=== PATIENT | male | born 1995 | race Caucasian/White ===

== ENCOUNTER 2017-06-12 09:00 | Emergency (ER) | payer OTHER ==
[2017-06-12 09:15] VITALS: BP 153/105; PULSE 84; RESP 16; TEMP 98.2; O2SAT 97
[2017-06-12] MEDS ORDERED: PROPARACAINE 0.5% 15 ML OPHT DROP OP ONE (09:18)
--- NOTE | 2017-06-12 09:41 | EDPHY ---
H & P Stated Complaint: right eye swollen and painful Time Seen by Provider: 06/12/17 09:14 HPI/ROS: Chief Complaint: Right eye pain and swelling HPI: 22-year-old male has had increasing swelling and irritation primarily to right upper eyelid and right eye worsening for the last 2 days. He is describing as an aching pain. Is not taking any medications for. Has not had any visual loss. Has been cleaning his apartment but does not recall any significant trauma. Does not wear contact lenses. No fevers or chills. No headache. No nausea or vomiting. ROS: 10 point Review of Systems is negative except as noted in the HPI. PMH: None Social History: [No] smoking, [no] alcohol, [ no recreational drug use] Family History: [non-contributory] Physical Exam: General: Awake, alert, no distress HEENT: Patient has significant swelling of his right upper eyelid. He has mild conjunctival injection. Is very minimal infraorbital erythema. There is no proptosis. He has no pain with extraocular movement. There is no resistance or tenderness to palpation. There is no double vision. There is no afferent nerve or pupillary defect. Anterior chambers clear. He has no consensual light reflex pain. There is no cell or flare. Skin: Per HEENT exam - Personal History Current Tetanus Diphtheria and Acellular Pertussis (TDAP): Yes Tetanus Vaccine Date: age 14 - Medical/Surgical History Hx Asthma: No Hx Chronic Respiratory Disease: No Hx Diabetes: No Hx Cardiac Disease: No Hx Renal Disease: No Hx Cirrhosis: No Hx Alcoholism: No Hx HIV/AIDS: No Hx Splenectomy or Spleen Trauma: No Other PMH: appy, kidney infection, ortho - Social History Smoking Status: Former smoker Constitutional: Initial Vital Signs Temperature (C) 36.8 C 06/12/17 09:12 Heart Rate 84 06/12/17 09:12 Respiratory Rate 16 06/12/17 09:12 Blood Pressure 153/105 H 06/12/17 09:12 O2 Sat (%) 97 06/12/17 09:12 O2 Delivery Mode Room Air Allergies/Adverse Reactions: amoxicillin [Amoxicillin] Allergy (Verified 06/12/17 09:15) EDEMA Home Medications: Medication Instructions Recorded None 10/07/09 Clindamycin HCl [Clindamycin] 300 mg PO TID #30 cap 06/12/17 Medical Decision Making ED Course/Re-evaluation: Patient has significant lid swelling consistent with blepharitis of his right eye. He does not have a decrease or pain full extraocular movements. There is no afferent pupillary defect. He does not have any resistance on retropulsion of that eye. There is no proptosis. There is minimal conjunctival injection. Symptoms consistent with a blepharitis. Will start with oral clindamycin. Will refer him for ophthalmology follow-up tomorrow. He has been cautioned with signs to return for any symptoms consistent with orbital cellulitis including diplopia, pain with eye movement, vision loss, or any other concerns. - Data Points Medications Given: Discontinued Medications Proparacaine HCl (Alcaine 0.5%) 1 drops OP EDNOW ONE Stop: 06/12/17 09:19 Last Admin: 06/12/17 09:24 Dose: 1 drops Departure - Departure Disposition: Home, Routine, Self-Care Clinical Impression: Blepharitis Condition: Good Instructions: Blepharitis (ED) Additional Instructions: Follow up with plastics engineer tomorrow. Continue taking her full course of oral antibiotics. You may take ibuprofen alternating with acetaminophen as needed for pain. Return to the emergency department immediately for pain with movement of her eye , double vision, worsening pain, changes in your vision, or any other concerns. Referrals: Thomas Jose MD [Medical Doctor] - As per Instructions Prescriptions: Clindamycin HCl [Clindamycin] 300 mg PO TID #30 cap
[2017-06-12] MEDS ORDERED: CLINDAMYCIN 150 MG CAP PO ONE (09:49)
== END 2017-06-12 10:09 | disposition home or self-care (01) ==
LOC: CED 09:00
DX: H01.001 Unspecified blepharitis right upper eyelid (principal); Z87.891 Personal history of nicotine dependence